=== PATIENT | female | born 1940 | race Caucasian/White ===

== ENCOUNTER 2024-09-29 16:35 | Emergency (ER) | payer MEDICARE ==
[2024-09-29] MEDS ORDERED: Acetaminophen 325 MG TAB ONE (17:45)
== END 2024-09-29 18:42 | disposition home or self-care (01) ==
LOC: NAV ERS 16:35
DX: S16.1XXA Strain of muscle, fascia and tendon at neck level, initial encounter (principal); S29.011A Strain of muscle and tendon of front wall of thorax, initial encounter; S00.531A Contusion of lip, initial encounter; S00.11XA Contusion of right eyelid and periocular area, initial encounter; S40.011A Contusion of right shoulder, initial encounter; M19.011 Primary osteoarthritis, right shoulder; I11.0 Hypertensive heart disease with heart failure; I50.9 Heart failure, unspecified; W01.0XXA Fall on same level from slipping, tripping and stumbling without subsequent striking against object, initial encounter; Z79.899 Other long term (current) drug therapy
CPT/HCPCS: 70450; 72125; 72128